=== PATIENT | male | born 1970 | race African-American/Black ===

== ENCOUNTER 2017-02-24 06:19 | Observation (INO) | payer SELFPAY ==
[~2017-02-24] VITALS: Ht 180.3 cm; Wt 94.0 kg
[~2017-02-24 06:19] MED LIST: 1-ME1LIQ PO; ALDA50TA PO; ASPI325T PO; BENI20TA26 PO; CLON.2 PO; LOVA40TA PO; METF500 PO
[2017-02-24 06:23] VITALS: BP 187/131; PULSE 63; RESP 16; TEMP 98.7; O2SAT 98
[2017-02-24] MEDS ORDERED: ASPI325T PO (06:36)
[2017-02-24] MEDS ORDERED: BENI20TA3 PO (06:36)
[2017-02-24] MEDS ORDERED: METF500T PO (06:36)
[2017-02-24] MEDS ORDERED: ALDA50TA PO (06:36)
[2017-02-24] MEDS ORDERED: CLON0.2T PO (06:36)
[2017-02-24] MEDS ORDERED: LOVA40TA PO (06:36)
[2017-02-24] MEDS ORDERED: SODIUM CHLORIDE 0.9% FLUSH 10 ML FLUSH IVF PRN (07:30)
--- NOTE | 2017-02-24 07:41 | PD ---
HPI Chief Complaint: Chest Pain Time Seen by Provider: 07:30 Travel History International Travel<30 days: No Contact w/Intl Traveler<30days: No Traveled to known affect area: No History of Present Illness HPI 46-year-old male came to the emergency room with history of substernal chest pain almost continuous for past 3 days. Pain is sharp stabbing without any radiation. Worsen on exertion. Currently the pain is 6 out of 10. Upon exertion and can get up to 10 out of 10. Some associated shortness of breath 2 days ago. No history of lightheadedness or syncopal episode. Patient says he has had this kind of pain about 3-3 and half years ago. He had a cardiac catheterization done at [facility]. There was no stent put in. He also has history of paroxysmal atrial fibrillation and was supposed to be on Eliquis but has not taken it in past one month. He has history of diabetes but as per his own admission and it is poorly controlled. He is compliant with her medications. Vital signs were stable in triage. [facility] Past Medical History Narrative Medical List of his past medical, surgical, social and family history is reviewed from the nursing note. Hx Anticoagulant Therapy: Yes Cardiac Catheterization: Yes ("NO STENTS") Cardiovascular Problems: Yes (STENTS, CHEST PAIN, HTN) High Cholesterol: Yes Diabetes: Yes Patient Takes Glucophage: Yes (METFORMIN) Hypertension: Yes Social History Alcohol Use: No Tobacco Use: No Substance Use: No Allergies-Medications (Allergen,Severity, Reaction): Coded Allergies: No Known Allergies (Unverified , 02/24/17) Comments No known drug allergies. Reported Meds & Prescriptions Reported Meds & Active Scripts Active Reported Aldactazide (Spironolactone-Hydrochlorothiazide) 50-50 Mg Tab 2 Tab PO BIDPC Lovastatin 40 Mg Tab 40 Mg PO DAILY Metformin (Metformin HCl) 500 Mg Tab 500 Mg PO BIDPC Clonidine (Clonidine HCl) 0.2 Mg Tab 0.2 Mg PO HS Aspirin 325 Mg Tab 325 Mg PO DAILY Benicar Hct (Olmesartan-Hydrochlorothiazide) 20-12.5 mg Tab 2 Tab PO DAILY Narrative Medication List of his home medications reviewed from the nursing note. Review of Systems Except as stated in HPI: all other systems reviewed are Neg Physical Exam Narrative GENERAL: Awake, alert, no obvious distress SKIN: Focused skin assessment warm/dry. HEAD: Atraumatic. Normocephalic. EYES: Pupils equal and round. No scleral icterus. No injection or drainage. ENT: No nasal bleeding or discharge. Mucous membranes pink and moist. NECK: Trachea midline. No JVD. CARDIOVASCULAR: Regular rate and rhythm. No murmur appreciated. RESPIRATORY: No accessory muscle use. Clear to auscultation. Breath sounds equal bilaterally. GASTROINTESTINAL: Abdomen soft, non-tender, nondistended. Hepatic and splenic margins not palpable. MUSCULOSKELETAL: No obvious deformities. No clubbing. No cyanosis. No edema. NEUROLOGICAL: Awake and alert. No obvious cranial nerve deficits. Motor grossly within normal limits. Normal speech. PSYCHIATRIC: Appropriate mood and affect; insight and judgment normal. Data Data Last Documented VS Vital Signs Date Time Temp Pulse Resp B/P (MAP) Pulse Ox O2 Delivery O2 Flow Rate FiO2 02/24/17 08:36 97 Room Air 02/24/17 06:23 98.7 63 16 Orders Orders Electrocardiogram (02/24/17 ) Electrocardiogram (02/24/17 07:30) Basic Metabolic Panel (Bmp) (02/24/17 07:30) Ckmb (Isoenzyme) Profile (02/24/17 07:30) Complete Blood Count With Diff (02/24/17 07:30) Magnesium (Mg) (02/24/17 07:30) Prothrombin Time / Inr (Pt) (02/24/17 07:30) Act Partial Throm Time (Ptt) (02/24/17 07:30) Troponin I (02/24/17 07:30) Chest, Single Ap (02/24/17 07:30) Ecg Monitoring (02/24/17 07:30) Bilateral Bp Monitoring (02/24/17 07:30) Iv Access Insert/Monitor (02/24/17 07:30) Oximetry (02/24/17 07:30) Oxygen Administration (02/24/17 07:30) Sodium Chloride 0.9% Flush (Ns Flush) (02/24/17 07:30) Aspirin Chew (Aspirin Chew) (02/24/17 08:00) Nitroglycerin Sl (Nitrostat Sl) (02/24/17 08:00) Acetaminophen (Tylenol) (02/24/17 08:00) CKMB (02/24/17 07:40) CKMB% (02/24/17 07:40) Admit Order (Ed Use Only) (02/24/17 08:54) Labs Laboratory Tests Test 02/24/17 07:40 White Blood Count 8.6 TH/MM3 Red Blood Count 5.47 MIL/MM3 Hemoglobin 15.9 GM/DL Hematocrit 48.0 % Mean Corpuscular Volume 87.7 FL Mean Corpuscular Hemoglobin 29.1 PG Mean Corpuscular Hemoglobin Concent 33.1 % Red Cell Distribution Width 14.2 % Platelet Count 206 TH/MM3 Mean Platelet Volume 9.4 FL Neutrophils (%) (Auto) 58.7 % Lymphocytes (%) (Auto) 30.0 % Monocytes (%) (Auto) 8.5 % Eosinophils (%) (Auto) 2.4 % Basophils (%) (Auto) 0.4 % Neutrophils # (Auto) 5.1 TH/MM3 Lymphocytes # (Auto) 2.6 TH/MM3 Monocytes # (Auto) 0.7 TH/MM3 Eosinophils # (Auto) 0.2 TH/MM3 Basophils # (Auto) 0.0 TH/MM3 CBC Comment DIFF FINAL Differential Comment Prothrombin Time 10.5 SEC Prothromb Time International Ratio 1.0 RATIO Activated Partial Thromboplast Time 27.0 SEC Blood Urea Nitrogen 12 MG/DL Creatinine 0.76 MG/DL Random Glucose 165 MG/DL Calcium Level 9.2 MG/DL Magnesium Level 2.2 MG/DL Sodium Level 139 MEQ/L Potassium Level 4.2 MEQ/L Chloride Level 105 MEQ/L Carbon Dioxide Level 25.5 MEQ/L Anion Gap 9 MEQ/L Estimat Glomerular Filtration Rate 133 ML/MIN Total Creatine Kinase 207 U/L Troponin I LESS THAN 0.02 NG/ML MDM Medical Decision Making Medical Screen Exam Complete: Yes Emergency Medical Condition: Yes Medical Record Reviewed: Yes Interpretation(s) Twelve-lead EKG was reviewed by me. Normal sinus rhythm, left axis deviation, nonspecific ST-T wave changes, ? old inferior ID. Heart rate of 64 bpm. Differential Diagnosis ACS, non-STEMI, atypical chest pain Narrative Course 8:58 AM blood test results are back and within acceptable limits. Patient does have risk factors for ACS. I would like him to be admitted and chest pain center so that he can be evaluated by the relaster and ruled out. Procedures EKG Prior to Arrival: No Diagnosis Primary Impression: Chest pain Qualified Codes: R07.9 - Chest pain, unspecified Admitting Information Admitting Physician Requests: Observation Cira Saha MD Feb 24, 2017 07:41
[2017-02-24] MEDS ORDERED: NITROGLYCERIN 0.4 MG SL 25 TABS/BTL SL ONE (08:00)
[2017-02-24] MEDS ORDERED: ACETAMINOPHEN 325 MG TAB PO ONE (08:00)
[2017-02-24] MEDS ORDERED: ASPIRIN 81 MG CHEW TAB CHEW ONE (08:00)
--- NOTE | 2017-02-24 08:04 | RADRPT ---
EXAM DATE/TIME: 02/24/2017 07:38 [place] COMPARISON: No previous studies available for comparison. INDICATIONS : Chest pain x 3-4 days. MEDICAL HISTORY : Hypertension. Hypercholesterolemia. Diabetic. SURGICAL HISTORY : Thumb. ENCOUNTER: Initial ACUITY: 3 days PAIN SCORE: 5/10 LOCATION: chest FINDINGS: A single view of the chest demonstrates the lungs to be symmetrically aerated without evidence of mas s, infiltrate or effusion. The cardiomediastinal contours are unremarkable. Osseous structures are intact. CONCLUSION: No acute disease. Suraj Trejo MD on February 24, 2017 at 8:02 Board Certified Radiologist. This report was verified electronically.
[2017-02-24 08:13] LABS: AUTOMATED NEUTROPHIL # 5.1 TH/MM3 (1.8-7.7); BASOPHIL % 0.4 % (0.0-2.0); EOSINOPHIL # 0.2 TH/MM3 (0-0.4); EOSINOPHIL % 2.4 % (0.0-4.0); HEMO FLAGS DIFF FINAL; LYMPHOCYTE # 2.6 TH/MM3 (1.0-4.8); MEAN CELL VOLUME 87.7 FL (80.0-100.0); MEAN CORPUSCULAR HEMOGLOBIN 29.1 PG (27.0-34.0); MEAN CORPUSCULAR HGB CONC 33.1 % (32.0-36.0); MONO % 8.5 % (0.0-8.0); NEUT % 58.7 % (16.0-70.0); PLATELET COUNT 206 TH/MM3 (150-450); RED BLOOD COUNT 5.47 MIL/MM3 (4.50-5.90); RED CELL DISTRIBUTION WIDTH 14.2 % (11.6-17.2); WHITE BLOOD COUNT 8.6 TH/MM3 (4.0-11.0)
[2017-02-24 08:25] LABS: PROTHROMBIN TIME - PATIENT 10.5 SEC (9.8-11.6)
[2017-02-24 08:36] VITALS: O2SAT 97
[2017-02-24 08:48] LABS: ANION GAP 9 MEQ/L (5-15); BICARBONATE 25.5 MEQ/L (21.0-32.0); BLOOD UREA NITROGEN 12 MG/DL (7-18); CHLORIDE 105 MEQ/L (98-107); CREATINE KINASE 207 U/L (39-308); GLOMERULAR FILTRATION RATE 133 ML/MIN (>89); MAGNESIUM 2.2 MG/DL (1.5-2.5); SODIUM (NA) 139 MEQ/L (136-145)
[2017-02-24 08:49] LABS: POTASSIUM 4.2 MEQ/L (3.5-5.1)
[2017-02-24 09:01] LABS: CKMB 1.2 NG/ML (0.5-3.6)
[2017-02-24 10:32] VITALS: O2SAT 99
[2017-02-24] MEDS ORDERED: ONDANSETRON HCL 4 MG/2 ML VIAL IV PUSH PRN (11:00)
[2017-02-24] MEDS ORDERED: NITROGLYCERIN 0.4 MG SL 25 TABS/BTL SL PRN (11:00)
[2017-02-24] MEDS ORDERED: ACETAMINOPHEN 500 MG CPLT PO PRN (11:00)
[2017-02-24 13:08] VITALS: BP 147/106; PULSE 57; RESP 16; TEMP 97.4; O2SAT 95
--- NOTE | 2017-02-24 13:56 | HHI.HP ---
HPI Primary Care Physician No Primary Care Physician Chief Complaint Chest Pain History of Present Illness 46 yo mile who is cooperative but poor historian. His problems seem to date back about 7 years when [facility]. Somehow a heart problem was also encountered and he thinks Dr. Ochoa saw him. He was evaluated but what was done and results are obscure. He was seen about 3 years ago and had a CATH. He is not sure if a STENT was placed or not. They did find "a hole in his heart" though. About a year ago he had a syncopal episone and thinks he saw a lady on [address] and thought he recognized the name Prince. He was told the hole was getting bigger. 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 He also has had several near syncopal episodes. Friday he was working overhead on a transmission when he developed sudden severe pain in his mid chest "like someone hit me with a pipe". This continued all day and was made worse by motion of his arm and torso. He felt a little dizzy and a bit nauseated but had no SOB or diaphoresis. He has had some relief since presenting to ED. Review of Systems ROS Limitations: Poor Historian HEENT: COMPLAINS OF: Lightheadedness Cardiovascular: COMPLAINS OF: See HPI Musculoskeletal: COMPLAINS OF: Muscle pain Past Family Social History Allergies: Coded Allergies: No Known Allergies (Unverified , 02/24/17) Past Medical History GI bleed HTN Diabetes type II "hole in heart" Reported Medications Reported Meds & Active Scripts Active Reported Aldactazide (Spironolactone-Hydrochlorothiazide) 50-50 Mg Tab 2 Tab PO BIDPC Lovastatin 40 Mg Tab 40 Mg PO DAILY Metformin (Metformin HCl) 500 Mg Tab 500 Mg PO BIDPC Clonidine (Clonidine HCl) 0.2 Mg Tab 0.2 Mg PO HS Aspirin 325 Mg Tab 325 Mg PO DAILY Benicar Hct (Olmesartan-Hydrochlorothiazide) 20-12.5 mg Tab 2 Tab PO DAILY Active Ordered Medications Current Medications Medications (Trade) Dose Ordered Sig/Luz Route Start Time Stop Time Status Last Admin (NS Flush) 2 ml UNSCH PRN IVF 02/24/17 07:30 02/24/17 08:22 (NS Flush) 2 ml BID IV FLUSH 02/24/17 21:00 (Tylenol) 500 mg Q4H PRN PO 02/24/17 11:00 (Zofran Inj) 4 mg Q6H PRN IV PUSH 02/24/17 11:00 (Nitrostat Sl) 0.4 mg Q5M PRN SL 02/24/17 11:00 (Aspirin) 325 mg DAILY PO 02/25/17 09:00 Family History Father of massive heart attack Mother living and well 1 brother 2 sisters Social History No Alcohol, tobacco or drugs single abut engaged Physical Exam Vital Signs Vital Signs Date Time Temp Pulse Resp B/P (MAP) Pulse Ox O2 Delivery O2 Flow Rate FiO2 02/24/17 13:08 97.4 57 16 147/106 (120) 95 02/24/17 12:48 02/24/17 10:32 99 02/24/17 08:36 97 Room Air 02/24/17 08:36 97 Room Air 02/24/17 06:23 98.7 63 16 187/131 (149) 98 Room Air Physical Exam GENERAL: WNWD overweight SKIN: Warm and dry. HEAD: Atraumatic. Normocephalic. Bald EYES: Pupils equal and round. No scleral icterus. No injection or drainage. ENT: No nasal bleeding or discharge. Mucous membranes pink and moist. NECK: Trachea midline. No JVD. No bruit CARDIOVASCULAR: Regular rate and rhythm. Very soft 1/6 S murmur and 1/6 early diastolic murmur. RESPIRATORY: No accessory muscle use. Clear to auscultation. Breath sounds equal bilaterally. Costocondral tenderness/Pain on palpation GASTROINTESTINAL: Abdomen soft, non-tender, nondistended. Splenic margins not palpable. Midline firm mass probably hepatic margin (he has been told he has an enlarged liver) MUSCULOSKELETAL: Extremities without clubbing, cyanosis, or edema. No obvious deformities. NEUROLOGICAL: Awake and alert. No obvious cranial nerve deficits. Motor grossly within normal limits. Five out of 5 muscle strength in the arms and legs. Normal speech. PSYCHIATRIC: Appropriate mood and affect; insight and judgment normal. Laboratory Laboratory Tests Test 02/24/17 07:40 White Blood Count 8.6 Red Blood Count 5.47 Hemoglobin 15.9 Hematocrit 48.0 Mean Corpuscular Volume 87.7 Mean Corpuscular Hemoglobin 29.1 Mean Corpuscular Hemoglobin Concent 33.1 Red Cell Distribution Width 14.2 Platelet Count 206 Mean Platelet Volume 9.4 Neutrophils (%) (Auto) 58.7 Lymphocytes (%) (Auto) 30.0 Monocytes (%) (Auto) 8.5 Eosinophils (%) (Auto) 2.4 Basophils (%) (Auto) 0.4 Neutrophils # (Auto) 5.1 Lymphocytes # (Auto) 2.6 Monocytes # (Auto) 0.7 Eosinophils # (Auto) 0.2 Basophils # (Auto) 0.0 CBC Comment DIFF FINAL Differential Comment Prothrombin Time 10.5 Prothromb Time International Ratio 1.0 Activated Partial Thromboplast Time 27.0 Blood Urea Nitrogen 12 Creatinine 0.76 Random Glucose 165 Calcium Level 9.2 Magnesium Level 2.2 Sodium Level 139 Potassium Level 4.2 Chloride Level 105 Carbon Dioxide Level 25.5 Anion Gap 9 Estimat Glomerular Filtration Rate 133 Total Creatine Kinase 207 Creatine Kinase MB 1.2 Troponin I LESS THAN 0.02 Result Diagram: 02/24/17 0740 02/24/17 0740 Imaging CXR neg Course Will evaluate and RO by standard protocol but also obtain ECHO due to hx of a hole in his heart that is getting bigger. Caprini VTE Risk Assessment Caprini VTE Risk Assessment: No/Low Risk (score <= 1) Caprini Risk Assessment Model Point Value = 1 Point Value = 2 Point Value = 3 Point Value = 5 Age 41-60 Minor surgery BMI > 25 kg/m2 Swollen legs Varicose veins or History of unexplained or recurrent spontaneous Oral contraceptives or hormone replacement Sepsis (< 1 month) Serious lung disease, including pneumonia (< 1 month) Abnormal pulmonary function Acute myocardial infarction Congestive heart failure (< 1 month) History of inflammatory bowel disease Medical patient at bed rest Age 61-74 Arthroscopic surgery Major open surgery (> 45 min) Laparoscopic surgery (> 45 min) Malignancy Confined to bed (> 72 hours) Immobilizing plaster cast Central venous access Age >= 75 History of VTE Family history of VTE Factor V Leiden Prothrombin [id number] Lupus anticoagulant Anticardiolipin antibodies Elevated serum homocysteine Heparin-induced thrombocytopenia Other congenital or acquired thrombophilia Stroke (< 1 month) Elective arthroplasty Hip, pelvis, or leg fracture Acute spinal cord injury (< 1 month) Prophylaxis Regimen Total Risk Factor Score Risk Level Prophylaxis Regimen 0-1 Low Early ambulation 2 Moderate Order ONE of the following: *Sequential Compression Device (SCD) *Heparin 5000 units SQ BID 3-4 Higher Order ONE of the following medications: *Heparin 5000 units SQ TID *Enoxaparin/Lovenox 40 mg SQ daily (WT < 150 kg, CrCl > 30 mL/min) *Enoxaparin/Lovenox 30 mg SQ daily (WT < 150 kg, CrCl > 10-29 mL/min) *Enoxaparin/Lovenox 30 mg SQ BID (WT < 150 kg, CrCl > 30 mL/min) AND/OR *Sequential Compression Device (SCD) 5 or more Highest Order ONE of the following medications: *Heparin 5000 units SQ TID (Preferred with Epidurals) *Enoxaparin/Lovenox 40 mg SQ daily (WT < 150 kg, CrCl > 30 mL/min) *Enoxaparin/Lovenox 30 mg SQ daily (WT < 150 kg, CrCl > 10-29 mL/min) *Enoxaparin/Lovenox 30 mg SQ BID (WT < 150 kg, CrCl > 30 mL/min) AND *Sequential Compression Device (SCD) Assessment and Plan Problem List: (1) Septal defect ICD Codes: Q21.9 - Congenital malformation of cardiac septum, unspecified Status: Chronic (2) HTN (hypertension) ICD Codes: I10 - Essential (primary) hypertension Status: Chronic (3) Diabetes 1.5, managed as type 2 ICD Codes: E10.9 - Type 1 diabetes mellitus without complications Status: Chronic (4) Enlarged liver ICD Codes: R16.0 - Hepatomegaly, not elsewhere classified Status: Chronic (5) Chest pain of uncertain etiology ICD Codes: R07.89 - Other chest pain Status: Acute Plan: [facility] protocol Assessment and Plan CP is highly suggestive of muscular-skeletal pain secondary to trauma but will RO by protocol. Code Status Full Code Discussed Condition With Discussed evaluation with patient and significant other Luis Doherty MD Feb 24, 2017 13:55
[2017-02-24 13:59] VITALS: PULSE 64
[2017-02-24 14:32] LABS: CREATINE KINASE 148 U/L (39-308)
[2017-02-24 14:45] LABS: CKMB 1.2 NG/ML (0.5-3.6)
[2017-02-24 15:47] LABS: CREATINE KINASE 159 U/L (39-308)
[2017-02-24 16:39] LABS: ALKALINE PHOSPHATASE 74 U/L (45-117); ALT (GPT) 41 U/L (12-78); ANION GAP 10 MEQ/L (5-15); AST (GOT) 13 U/L (15-37); BICARBONATE 24.5 MEQ/L (21.0-32.0); BLOOD UREA NITROGEN 10 MG/DL (7-18); CHLORIDE 106 MEQ/L (98-107); GLOMERULAR FILTRATION RATE 156 ML/MIN (>89); POTASSIUM 3.4 MEQ/L (3.5-5.1); SODIUM (NA) 140 MEQ/L (136-145); TOTAL BILIRUBIN ADULT 0.8 MG/DL (0.2-1.0)
--- NOTE | 2017-02-24 17:39 | ECHRPT ---
Indication: CHEST PAIN CONCLUSIONS Normal left ventricular size. Mild concentric left ventricular hypertrophy. The left ventricular systolic function is mildly reduced with an estimated ejection fraction in the range of 45- 50%. Trace mitral valve regurgitation. Aortic valve sclerosis is present. The estimated pulmonary arterial pressure is 28 mmHg. There is mild tricuspid valve regurgitation. BP: 147 / 106 HR: 57 Rhythm: Sinus MEASUREMENTS (Male / Female) Normal Values Technical Quality:Fair 2D ECHO LV Diastolic Diameter PLAX 5.3 cm 4.2 - 5.9 / 3.9 - 5.3 cm LV Systolic Diameter PLAX 4.3 cm IVS Diastolic Thickness 1.3 cm 0.6 - 1.0 / 0.6 - 0.9 cm LVPW Diastolic Thickness 1.3 cm 0.6 - 1.0 / 0.6 - 0.9 cm LV Relative Wall Thickness 0.5 LVOT Diameter 2.3 cm Aortic Root Diameter 4.1 cm LA Systolic Diameter LX 2.9 cm 3.0 - 4.0 / 2.7 - 3.8 cm M-MODE AV Cusp Separation MM 2.1 cm DOPPLER AV Peak Velocity 124.0 cm/s AV Peak Gradient 6.2 mmHg AV Mean Gradient 3.0 mmHg AV Velocity Time Integral 23.6 cm LVOT Peak Velocity 87.2 cm/s LVOT Peak Gradient 3.0 mmHg LVOT Velocity Time Integral 16.3 cm LVOT Cardiac Index 1763.7 cm/minm AV Area Cont Eq vti 2.9 cm AV Area Cont Eq pk 2.9 cm Mitral E Point Velocity 80.5 cm/s Mitral A Point Velocity 64.7 cm/s Mitral E to A Ratio 1.2 LV E' Lateral Velocity 8.0 cm/s Mitral E to LV E' Lateral Ratio 10.1 LV E' Septal Velocity 7.2 cm/s Mitral E to LV E' Septal Ratio 11.2 TR Peak Velocity 210.0 cm/s TR Peak Gradient 17.6 mmHg PV Peak Velocity 66.9 cm/s PV Peak Gradient 1.8 mmHg FINDINGS LEFT VENTRICLE Normal left ventricular size. Mild concentric left ventricular hypertrophy. The left ventricular systolic function is mildly reduced with an estimated ejection fraction in the range of 45- 50%. MITRAL VALVE Trace mitral valve regurgitation. AORTIC VALVE Aortic valve sclerosis is present. TRICUSPID VALVE The estimated pulmonary arterial pressure is 28 mmHg. There is mild tricuspid valve regurgitation. Daniel Nolasco MD (Electronically Signed) Final Date:24 February 2017 17:38
--- NOTE | 2017-02-24 17:42 | HHI.DCPOC ---
Discharge Care Plan Diagnosis: (1) Musculoskeletal chest pain (2) Hypertension (3) Type 2 diabetes mellitus Goals to Promote Your Health * To prevent worsening of your condition and complications * To maintain your health at the optimal level Directions to Meet Your Goals Take your medications as prescribed Follow your dietary instruction Follow activity as directed Keep your appointments as scheduled Take your immunizations and boosters as scheduled If your symptoms worsen call your PCP, if no PCP go to Urgent Care Center or Emergency Room Smoking is Dangerous to Your Health. Avoid second hand smoke Call the 24-hour hour crisis hotline for domestic abuse at Kina Silva Feb 24, 2017 17:42
[2017-02-24] MEDS ORDERED: SODIUM CHLORIDE 0.9% FLUSH 10 ML FLUSH IV FLUSH SCH (21:00)
[2017-02-25] MEDS ORDERED: ASPIRIN 325 MG TAB PO SCH (09:00)
--- NOTE | 2017-02-25 18:23 | EKG ---
Date Performed: 02/24/2017 Time Performed: 17:31:24 PTAGE: 46 years EKG: SINUS BRADYCARDIA WITH SINUS ARRHYTHMIA INFERIOR MYOCARDIAL INFARCTION ABNORMAL ECG PREVIOUS TRACING : 02/24/2017 13.38 Since previous tracing, no significant change noted DOCTOR: Gary Hinton Interpretating Date/Time 02/25/2017 18:21:48
--- NOTE | 2017-02-25 18:26 | EKG ---
Date Performed: 02/24/2017 Time Performed: 07:01:57 PTAGE: 46 years EKG: Sinus rhythm BORDERLINE LEFT AXIS DEVIATION BORDERLINE ECG PREVIOUS TRACING : 11/15/2015 12.14 Since previous tracing, no significant change noted DOCTOR: Gary Hinton Interpretating Date/Time 02/25/2017 18:25:02
--- NOTE | 2017-02-25 18:26 | EKG ---
Date Performed: 02/24/2017 Time Performed: 13:38:35 PTAGE: 46 years EKG: SINUS BRADYCARDIA INFERIOR MYOCARDIAL INFARCTION ABNORMAL ECG PREVIOUS TRACING : 02/24/2017 07.01 Since previous tracing, no significant change noted DOCTOR: Gary Hinton Interpretating Date/Time 02/25/2017 18:24:19
== END 2017-02-24 19:38 | disposition home or self-care (01) ==
LOC: NEPC 06:19 → NEDA 08:55 → NEPFCDU 12:44
PROVIDERS: ADMIT Internal Medicine Interventional Cardiology; ATTEND Internal Medicine Interventional Cardiology
DX: R07.89 Other chest pain (principal); I10 Essential (primary) hypertension; E11.9 Type 2 diabetes mellitus without complications; E78.00 Pure hypercholesterolemia, unspecified; Z79.01 Long term (current) use of anticoagulants; Z79.899 Other long term (current) drug therapy; Z79.82 Long term (current) use of aspirin; Z79.84 Long term (current) use of oral hypoglycemic drugs
CPT/HCPCS: 71010; 80048; 80053; 82550; 82552; 83735; 84484; 85025; 85610; 85730; 93005; 93306; 99285; G0378